=== PATIENT | male | born 1950 | race Caucasian/White ===

== ENCOUNTER → 2021-10-04 08:49 | Outpatient (CLI) | payer MEDICARE, SELFPAY ==
--- NOTE | ~2021-10-04 | MR_ITS ---
EXAMINATION: MR shoulder RT wo con DATE: 10/04/2021 09:46 INDICATION: Right shoulder pain TECHNIQUE: Magnetic resonance imaging (MRI) of the right shoulder was performed without intravenous c ontrast. Sequences included axial PD-weighted FS FSE, coronal oblique PD-weighted FS FSE, coronal obl ique T2-weighted FS FSE, sagittal PD-weighted FS FSE, and sagittal T1-weighted SE. COMPARISON: None. FINDINGS: Coracoacromial arch: The acromion undersurface is curved in morphology (type II). The coracoacromial ligament is normal wi th small anterior subacromial spur at its acromial insertion. Moderate acromioclavicular osteoarthrit is. Rotator cuff: Moderate supraspinatus and mild infraspinatus tendinopathy. There is a full-thickness tear involving the entire superior facet footplate of the supraspinatus tendon and extending posteriorly into the co njoined portion of the supraspinatus and infraspinatus tendons. In this region the tear transitions f rom along the footplate into the critical zone with small amount of residual tendon material remainin g attached along the anterior middle facet footplate. The supraspinatus tendon tear margin is retract ed medial to the apex of the humeral head possibly 3.5 cm medially from the footplate. The U-shaped t ear defect measures approximately 303.5 similar anteroposteriorly at the level of the apex of the hum eral head. Mild subscapularis tendinopathy without discrete tear. Normal rotator cuff muscle bulk and signal. Biceps tendon, glenoid labrum and glenohumeral cartilage: There is a complete tear of the long head biceps tendon at the junction of the intra-articular and ex tra articular portion of the tendon. The distal tear margin is retracted caudally below the inferior margin of the [id number]. There is mild partial-thickness cartilage loss with smooth chondral surf jeri along the inferomedial aspect of the humeral head. Small marginal osteophytes replacing a portion of the inferior labrum. No labral tear. Fluid: Physiologic amount of fluid in the glenohumeral joint. No loose osteochondral bodies. Small amount o f fluid in the subacromial which could be due to either decompression of glenohumeral joint fluid thr ough the full-thickness rotator cuff tear defect or 2 mild subacromial/subdeltoid bursitis.. Bones: Normal marrow signal. No fracture or pathologic marrow replacing process. IMPRESSION: 1. Moderate supraspinatus and infraspinatus tendinopathy with moderate sized full-thickness tear invo lving the entire supraspinatus tendon and conjoined portion of the supraspinatus and infraspinatus te ndons with 2. Full-thickness tear and distal retraction of the long head of the biceps tendon occurring at the j unction of the intra-articular portions of the tendon. 3. Mild glenohumeral and moderate acromioclavicular osteoarthritis. Reviewed, dictated and finalized at location A. IMPRESSION: 1. Moderate supraspinatus and infraspinatus tendinopathy with moderate sized fu ll-thickness tear involving the entire supraspinatus tendon and conjoined porti on of the supraspinatus and infraspinatus tendons with 2. Full-thickness tear and distal retraction of the long head of the biceps ten don occurring at the junction of the intra-articular portions of the tendon. 3. Mild glenohumeral and moderate acromioclavicular osteoarthritis.
== END ==
PROVIDERS: PCP Physician Assistant; Visit Provider Physician Assistant
DX: S46.211A Strain of muscle, fascia and tendon of other parts of biceps, right arm, initial encounter (principal); X58.XXXA Exposure to other specified factors, initial encounter; M19.011 Primary osteoarthritis, right shoulder
CPT/HCPCS: 73221